=== PATIENT | female | born 1970 | race Caucasian/White ===

== ENCOUNTER → 2016-09-18 | Outpatient (CLI) | payer OTHER ==
[~2016-09-18] MED LIST: NAPROXEN 3375 MG/TAB PO; NORCO 325 MG-51 TAB PO; PERCOCET 325 MG1 TA2 PO
== END ==
LOC: MC.RAD 07:40
DX: Z12.31 Encounter for screening mammogram for malignant neoplasm of breast (principal)

== ENCOUNTER 2017-02-17 18:02 | Emergency (ER) | payer OTHER ==
[~2017-02-17] VITALS: Ht 157.5 cm; Wt 50.0 kg
[2017-02-17] MEDS ORDERED: WELLBUTRIN 75MG75 MG PO ×2 (18:32)
[2017-02-17] MEDS ORDERED: DESYREL 50MG50 MG PO (18:33)
[2017-02-17 18:43] LABS: BASO # 0.1 (0.0-0.2); BASO % 1.2 % (0.0-2.0); EOS # 0.1 (0.0-0.7); EOS % 1.4 % (0-4.0); GRAN # 1.9 (1.4-6.5); GRAN % 38.1 % (42.2-75.2); HEMATOCRIT 45.9 % (37.0-47.0); HEMOGLOBIN 15.5 g/dl (12.5-16.0); LYMPH # 2.5 (1.2-3.4); LYMPH % 48.4 % (20.0-51.0); MEAN CELL VOLUME 95 fl (80.0-100.0); MEAN CORPUSCULAR HEMOGLOBIN 32 pg (27.0-31.0); MEAN CORPUSCULAR HGB CONC 34 g/dl (33.0-37.0); MEAN PLATELET VOLUME 9.8 fl (7.4-10.4); MONO # 0.5 (0.1-0.6); MONO % 10.7 % (1.7-9.3); PLATELET COUNT 229 K/mm3 (130-400); RED BLOOD COUNT 4.85 M/mm3 (4.10-5.30); REDCELL DISTRIBUTION WIDTH-CV 12.7 % (11.5-14.5); WHITE BLOOD COUNT 5.1 K/mm3 (4.8-10.8)
[2017-02-17 18:52] LABS: ALANINE AMINOTRANSFERASE 60 U/L (9-52); ALBUMIN 5.1 gm/dL (3.5-5.0); ALKALINE PHOSPHATASE 64 U/L (50-136); ANION GAP 15 mmol/L (7-16); BILIRUBIN,TOTAL 0.4 mg/dL (0.0-1.0); BLOOD UREA NITROGEN 12 mg/dL (7-17); CALCIUM 9.9 mg/dL (8.4-10.2); CARBON DIOXIDE 27 mmol/L (22-30); CHLORIDE 103 mmol/L (98-107); CREATININE, serum 0.74 mg/dL (0.52-1.25); GLUCOSE 87 mg/dL (74-106); SODIUM 146 mmol/L (137-145); TOTAL PROTEIN 8.4 gm/dL (6.4-8.2)
[2017-02-17 19:09] LABS: ACETAMINOPHEN < 10 ug/mL (10-30); SALICYLATE < 1.0 mg/dL
[2017-02-17 19:46] LABS: AMPHETAMINE URINE NEGATIVE; BARBITURATES URINE NEGATIVE; BENZODIAZEPINES URINE NEGATIVE; BUPRENORPHINE URINE NEGATIVE; METHADONE URINE NEGATIVE; OPIATES URINE NEGATIVE; OXYCODONE URINE NEGATIVE; PHENCYCLIDINE URINE NEGATIVE; PROPOXYPHENE URINE NEGATIVE; THC CANNABINOIDS URINE NEGATIVE
[2017-02-17 22:48] VITALS: TEMP 97.9
[2017-02-18 01:19] VITALS: BP 124/83; PULSE 92
== END 2017-02-18 01:20 | disposition home or self-care (01) ==
LOC: COL.ER 18:02
PROVIDERS: Emergency Medicine
DX: F10.129 Alcohol abuse with intoxication, unspecified (principal); R45.851 Suicidal ideations; Y90.6 Blood alcohol level of 120-199 mg/100 ml

== ENCOUNTER → 2017-11-15 | Outpatient (CLI) | payer OTHER ==
[~2017-11-15] MED LIST changes: +DESYREL 50MG50 MG PO; +WELLBUTRIN 75MG75 MG PO
== END ==
LOC: MC.RAD 09-30 09:20
DX: Z12.31 Encounter for screening mammogram for malignant neoplasm of breast (principal)

== ENCOUNTER → 2018-11-16 | Outpatient (CLI) | payer OTHER | LOC: MC.RAD 12:00 | DX: Z12.31 Encounter for screening mammogram for malignant neoplasm of breast (principal) ==

== ENCOUNTER → 2019-12-01 | Outpatient (CLI) | payer BC | LOC: MC.RAD 13:18 | DX: Z12.31 Encounter for screening mammogram for malignant neoplasm of breast (principal) ==